=== PATIENT | male | born 1975 | race Hispanic/Latino ===

== ENCOUNTER 2020-08-08 11:17 | Day surgery (SDC) | payer BC ==
[2020-08-08 11:49] VITALS: TEMP 97.6; BMI 37.6
[2020-08-08 12:11] LABS: Hematocrit 52.5 % (39.6-49.0)
[2020-08-08 13:21] VITALS: BP 153/96; O2SAT 100
== END 2020-08-08 13:00 | disposition home health service (06) ==
LOC: DS 11:17
DX: D45 Polycythemia vera (principal)
CPT/HCPCS: 36415; 85014; 85018; 99195